=== PATIENT | female | born 2000 | race Native Hawaiian/Other Pacific Islander ===

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

== ENCOUNTER 2021-08-25 08:05 | Outpatient (CLI) | payer OTHER | END 2021-08-25 20:38 | disposition home or self-care (01) | LOC: US 08:05 | PROVIDERS: ATTEND Nurse Practitioner Family | DX: R74.8 Abnormal levels of other serum enzymes (principal) ==

== ENCOUNTER 2022-02-01 10:26 | Outpatient (CLI) | payer OTHER ==
[~2022-02-01] VITALS: Ht 172.7 cm; Wt 101.8 kg
[2022-02-01 10:55] VITALS: BP 132/79; TEMP 98.5
[2022-02-01 11:50] VITALS: BP 135/79; TEMP 97.4
[2022-02-01 12:05] VITALS: BP 119/76; TEMP 97.6
[2022-02-01 12:35] VITALS: BP 115/70; TEMP 98.1
== END 2022-02-01 19:36 | disposition home or self-care (01) ==
LOC: INF 10:26
PROVIDERS: ATTEND Family Medicine
DX: Z23 Encounter for immunization (principal); U07.1 COVID-19
CPT/HCPCS: 96374; Q0222

== ENCOUNTER 2022-03-01 21:43 | Emergency (ER) | payer OTHER ==
[~2022-03-01] VITALS: Ht 170.2 cm; Wt 97.5 kg
[2022-03-02 00:01] VITALS: BP 102/62; TEMP 98.9
== END 2022-03-02 00:12 | disposition home or self-care (01) ==
LOC: ED 21:43
DX: J02.0 Streptococcal pharyngitis (principal); T36.1X5A Adverse effect of cephalosporins and other beta-lactam antibiotics, initial encounter; X58.XXXA Exposure to other specified factors, initial encounter; Y92.89 Other specified places as the place of occurrence of the external cause
CPT/HCPCS: 93005; 99283

== ENCOUNTER 2022-05-09 12:39 | Outpatient (CLI) | payer OTHER ==
[2022-05-09 13:04] LABS: PLATELET COUNT 450 K/uL (152-353)
== END 2022-05-09 20:59 | disposition home or self-care (01) ==
LOC: LABW 12:39
PROVIDERS: ATTEND Physician Assistant
DX: E55.9 Vitamin D deficiency, unspecified (principal); E56.8 Deficiency of other vitamins; M06.4 Inflammatory polyarthropathy; R53.83 Other fatigue; Z79.899 Other long term (current) drug therapy
CPT/HCPCS: 36415; 80053; 82306; 85027; 85652; 86140

== ENCOUNTER 2022-05-22 12:44 | Outpatient (CLI) | payer OTHER | END 2022-05-22 20:24 | disposition home or self-care (01) | LOC: RAD 12:44 | PROVIDERS: ATTEND Nurse Practitioner Family | DX: M79.671 Pain in right foot (principal) ==

== ENCOUNTER 2022-08-22 07:50 | Outpatient (CLI) | payer OTHER ==
[2022-08-22 08:07] LABS: PLATELET COUNT 427 K/uL (152-353)
== END 2022-08-22 19:22 | disposition home or self-care (01) ==
LOC: LABW 07:50
PROVIDERS: ATTEND Psychiatry & Neurology Psychiatry
DX: F33.1 Major depressive disorder, recurrent, moderate (principal); F90.2 Attention-deficit hyperactivity disorder, combined type; Z79.899 Other long term (current) drug therapy
CPT/HCPCS: 36415; 80053; 80061; 83036; 84443; 85027

== ENCOUNTER 2022-10-03 18:28 | Outpatient (CLI) | payer OTHER | END 2022-10-03 19:03 | disposition home or self-care (01) | LOC: LABW 18:28 | PROVIDERS: ATTEND Internal Medicine Gastroenterology | DX: K59.1 Functional diarrhea (principal) | CPT/HCPCS: 82272; 82705; 83630; 87015; 87045; 87324; 87328; 87329; 87449; 87899 ==

== ENCOUNTER 2022-10-27 10:32 | Outpatient (CLI) | payer OTHER ==
[2022-10-27 11:11] LABS: POTASSIUM 4.3 mmol/L (3.6-5.2)
[2022-10-27 11:21] LABS: PLATELET COUNT 426 K/uL (152-353)
== END 2022-10-27 19:22 | disposition home or self-care (01) ==
LOC: LABW 10:32
PROVIDERS: ATTEND Nurse Practitioner Family
DX: E55.9 Vitamin D deficiency, unspecified (principal); M06.4 Inflammatory polyarthropathy; M20.22 Hallux rigidus, left foot; R76.0 Raised antibody titer; Z79.899 Other long term (current) drug therapy
CPT/HCPCS: 36415; 80053; 82306; 85027; 85652; 86140

== ENCOUNTER 2023-01-19 16:49 | Emergency (ER) | payer OTHER ==
[~2023-01-19] VITALS: Ht 175.3 cm; Wt 101.2 kg
[2023-01-19 16:52] VITALS: BP 142/81; TEMP 98.2
== END 2023-01-19 17:33 | disposition home or self-care (01) ==
LOC: ED 16:49
DX: L25.9 Unspecified contact dermatitis, unspecified cause (principal); T78.49XA Other allergy, initial encounter
CPT/HCPCS: 99282